=== PATIENT | female | born 1970 | race Two or more races ===

== ENCOUNTER 2024-04-16 09:35 | Emergency (ER) | payer MEDICAID, OTHER ==
[~2024-04-16] VITALS: Ht 160 cm; Wt 69.4 kg
[2024-04-16 09:55] VITALS: PULSE 98; RESP 12; O2SAT 94
[2024-04-16 10:00] VITALS: TEMP 98.3
[2024-04-16] MEDS: KETOROLAC TROMETH 30 MG/ML 1ML VIAL IV ONE (10:07)
[2024-04-16] MEDS: SODIUM CHLORIDE 0.9% 1,000 ML IVB ONE (10:07)
[2024-04-16 10:18] VITALS: PULSE 89; RESP 14; O2SAT 97
[2024-04-16 10:26] LABS: Basophils # (auto) 0 10 ^3/uL (0-0.2); Basophils % (auto) 0.6 % (0.0-2.0); Eosinophils # (auto) 0.1 10 ^3/uL (0-0.8); Eosinophils % (auto) 1.8 % (0.0-7.0); Hematocrit 42.7 % (36.0-46.0); Hemoglobin 14.2 g/dL (12.2-16.2); Lymphocytes # (auto) 1.5 10 ^3/uL (0.4-5.4); Lymphocytes % (auto) 29.5 % (10.0-50.0); Mean Corpuscular Hemoglobin 29.8 pg (28.0-32.0); Mean Corpuscular Hgb Conc. 33.2 g/dL (32.0-36.0); Mean Corpuscular Volume 89.9 fL (80.0-100.0); Monocytes # (auto) 0.4 10 ^3/uL (0-1.3); Monocytes % (auto) 8.1 % (0.0-12.0); Neutrophils # (auto) 3.1 10 ^3/uL (1.6-8.6); Nucleated Red Blood Cells % 0.1 %; Red Blood Cells 4.75 10^6/uL (4.0-5.20); Red Cell Distribution Width 13.5 % (11.8-14.3); White Blood Cell 5.2 10^3/uL (4.4-10.8)
[2024-04-16 10:41] LABS: Chloride 108 mmol/L (98-107); Potassium 3.6 mmol/L (3.5-5.1); Sodium 139 mmol/L (136-145)
[2024-04-16 10:42] LABS: Anion Gap 3 (5-15); Calcium 9.4 mg/dL (8.5-10.1); Carbon Dioxide 28 mmol/L (20-30)
[2024-04-16 10:47] LABS: BUN/Creatinine Ratio 22.6 (10.0-20.0); Blood Urea Nitrogen 12 mg/dL (9-23); Glucose 119 mg/dL (74-106)
[2024-04-16] MEDS ORDERED: IBUP-1453 PO (10:54)
[2024-04-16] MEDS ORDERED: ZOFR4T PO (11:04)
[2024-04-16 11:13] LABS: Urine Bacteria None Seen /hpf (None Seen)
[2024-04-16 11:28] LABS: Urine Blood Negative /uL (Negative); Urine Clarity Clear (Clear); Urine Color Colorless (Yellow); Urine Protein, UAD Negative (Negative); Urine Specific Gravity 1.008 (1.001-1.035); Urine Urobilinogen Normal (Negative); Urine WBC <1 /hpf (0 - 5); Urine pH 5.5 (5.0-9.0)
[2024-04-16 11:56] VITALS: BP 123/72; PULSE 73; RESP 12
== END 2024-04-16 12:06 | disposition home or self-care (01) ==
LOC: ER 09:35
DX: M54.32 Sciatica, left side (principal); Z98.890 Other specified postprocedural states; Z79.899 Other long term (current) drug therapy
CPT/HCPCS: 36415; 74176; 80048; 81001; 85025; 93005; 96361; 96374; 99285; J1885; J7030